=== PATIENT | male | born 1965 | race Hispanic/Latino ===

== ENCOUNTER 2025-01-07 13:41 | Emergency (ER) | payer BC ==
[~2025-01-07] VITALS: Ht 172.7 cm; Wt 73.0 kg
[2025-01-07 13:53] VITALS: TEMP 97.7
[2025-01-07] MEDS: SODIUM CHLORIDE 0.9% 1000ML 1,000 ML IV ONE ×2 (14:07→16:04)
[2025-01-07 16:53] VITALS: PULSE 102; RESP 16
[2025-01-07] MEDS ORDERED: LOPERAMIDE2 MG PO (17:34)
[2025-01-07 17:53] VITALS: BP 96/55; PULSE 102; RESP 20; O2SAT 98
[2025-01-08] MEDS ORDERED: DICYCLOMINE HCL20 MG PO (11:44)
== END 2025-01-07 17:53 | disposition home or self-care (01) ==
LOC: FSED 13:47
DX: R19.7 Diarrhea, unspecified (principal); I10 Essential (primary) hypertension
CPT/HCPCS: 80053; 80076; 85025; 87400; 99283; J7030

== ENCOUNTER 2025-01-08 11:14 | Emergency (ER) | payer BC ==
[~2025-01-08 11:14] MED LIST: LOPERAMIDE2 MG PO
[2025-01-08 11:23] VITALS: PULSE 99; RESP 20; TEMP 98; O2SAT 100
[2025-01-08] MEDS ORDERED: DICYCLOMINE HCL20 MG PO (11:44)
== END 2025-01-08 11:55 | disposition home or self-care (01) ==
LOC: FSED 11:22
DX: R19.7 Diarrhea, unspecified (principal); I10 Essential (primary) hypertension
CPT/HCPCS: 99284